=== PATIENT | male | born 2000 | race Caucasian/White ===

== ENCOUNTER 2024-10-23 11:00 | Emergency (ER) | payer MEDICAID ==
[~2024-10-23] VITALS: Ht 167.6 cm; Wt 77.3 kg
[2024-10-23 11:08] VITALS: TEMP 99
[2024-10-23] MEDS: CEPHALEXIN MONOHYDRATE 500 MG CAPSULE PO ONE (12:51)
[2024-10-23] MEDS: SULFAMETHOX/TRIMETH DS 800-160 MG/TABLET PO ONE (12:51)
[2024-10-23 13:11] VITALS: BP 142/68; PULSE 86; RESP 18; O2SAT 99
[2024-10-23] MEDS ORDERED: CEPH-558 PO (13:59)
[2024-10-23] MEDS ORDERED: SULF-261 PO (13:59)
== END 2024-10-23 14:15 | disposition home or self-care (01) ==
LOC: EMS 11:06
DX: S51.832A Puncture wound without foreign body of left forearm, initial encounter (principal); S01.531A Puncture wound without foreign body of lip, initial encounter; F12.90 Cannabis use, unspecified, uncomplicated; X58.XXXA Exposure to other specified factors, initial encounter; Y93.89 Activity, other specified; Y92.89 Other specified places as the place of occurrence of the external cause; Y99.8 Other external cause status
CPT/HCPCS: 99283